=== PATIENT | male | born 1985 | race Caucasian/White ===

== ENCOUNTER 2019-03-16 05:55 | Emergency (ER) | payer OTHER ==
[~2019-03-16] VITALS: Ht 188 cm; Wt 70.3 kg
[2019-03-16] MEDS ORDERED: NORCO 5-325 TA1 EAC1 PO (06:43)
[2019-03-16] MEDS ORDERED: TORADOL 10 MG T10 MG PO (06:43)
[2019-03-16 06:49] VITALS: BP 124/71
== END 2019-03-16 06:51 | disposition home or self-care (01) ==
LOC: M.ERS 05:55
DX: S83.91XA Sprain of unspecified site of right knee, initial encounter (principal); W22.8XXA Striking against or struck by other objects, initial encounter; Y93.89 Activity, other specified; Y92.512 Supermarket, store or market as the place of occurrence of the external cause; Y99.8 Other external cause status